=== PATIENT | male | born 1955 ===

== ENCOUNTER 2018-12-26 01:23 | Emergency (ER) | payer OTHER ==
--- OUTSIDE RECORDS SUMMARY | 2018-12-26 01:29 | XMS REPORT | Continuity of Care Document ---
:1955 External Reference #:[id number] Author Name Reji Booker M.D. Address [address] [place] [address] Care Team Providers Name Role Phone Guerline Reza N.P. Primary Care Physician Unavailable Payers Date Identification Numbers Payment Provider Subscriber Policy Number: [id number] Ricci Carlos Bundy Group Number: [id number] [id number] PayID: [id number] [place] [address] Advance Directives Description No Information Available Problems Active Problems Provider Date Subjective tinnitus Onset: Palpitations Onset: Central serous chorioretinopathy Reji Booker M.D. Onset: 12/16/2015 Primary open-angle glaucoma, mild stage Reji Booker M.D. Onset: 2015 Primary open angle glaucoma of right eye Reji Booker M.D. Onset: 2016 Nuclear senile cataract Reji Booker M.D. Onset: 12/17/2016 Bilateral primary open angle glaucoma Reji Booker M.D. Onset: 12/20/2017 Squamous blepharitis Reji Booker M.D. 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 ETOH Use Occasionally consumes alcohol Recreational Drug Use Denies Drug Use Tobacco Use Start: Unknown End: Patient is a former smoker cigars Unknown Smoking Status Reviewed: 12/22/18 Patient is a former smoker cigars Allergies, Adverse Reactions, Alerts Active Allergies Reaction Severity Comments Date Cashews 12/07/2014 Shrimp 12/07/2014 Medications Active Medications SIG Qnty Indications Ordering Provider Date No Active Medications Unknown 12/22/2018 History Medications Erythromycin apply to all 4 lids 1Tube H01.021 Reji SalazarSyeda 12/20/2017 - 5mg/GM at bedtime for 2 Opal Booker 01/05/2018 Ointment weeks, then discontinue No Active Unknown 12/14/2014 - Medications 12/14/2014 No Active Unknown 12/14/2014 - Medications 12/13/2014 Multi Vitamin Daily Unknown - 08/09/2018 Tablets Vitamin C Unknown - 12/16/2016 Echinacea Unknown - 12/16/2016 Calcium Citrate + Unknown - 12/16/2016 Grape Seed Unknown - 12/16/2016 Vitamin B12 Unknown - 12/16/2016 Probiotic Unknown - 08/19/2018 Turmeric Unknown - 12/16/2016 Elle Extract Unknown - 12/16/2016 Cayenne Unknown - 12/16/2016 ALL Spice (In Tea) Unknown - 12/16/2016 Immunizations Description No Information Available Vital Signs Description No Information Available Results Description No Information Available Procedures Date Code Description Status 12/20/2017 66676 Visual Field Exam Extended Completed 12/20/2017 82092 Est Patient Comprehensive Exam Completed 12/17/2016 09334 Scanning Computerized Opthalmic Diagnostic Posterior Seg Completed Retina 12/17/2016 08369 Visual Field Exam Extended Completed 12/17/2016 30826 Est Patient Comprehensive Exam Completed 12/16/2015 11845 Fundus Photography With Interpretation And Report Completed 12/16/2015 97352 Visual Field Exam Extended Completed 12/16/2015 21666 Determination Of Refractive State Completed 12/16/2015 22503 Est Patient Comprehensive Exam Completed 12/14/2014 59496 Determination Of Refractive State Completed 12/14/2014 88292 Est Patient Comprehensive Exam Completed 12/07/2014 01870 Visual Field Exam Extended Completed 12/07/2013 510 Eye Scrubs 30 Count Completed 12/07/2013 26246 Est Patient Comprehensive Exam Completed 12/07/2013 24126 Scanning Computerized Ophthalmic Diagnostic Imag Posterior Completed Seg On 12/07/2013 47281 Scanning Computerized Opthalmic Diagnostic Posterior Seg Completed Retina 06/07/2013 51543 Visual Field Exam Extended Completed 12/06/2012 87662 Fundus Photography With Interpretation And Report Completed 12/06/2012 34139 Determination Of Refractive State Completed 12/06/2012 03180 Est Patient Comprehensive Exam Completed 06/10/2012 31076 Visual Field Exam Extended Completed 12/07/2011 35186 Scanning Computerized Ophthalmic Diagnostic Imag Posterior Completed Seg On 12/07/2011 00474 Determination Of Refractive State Completed 12/07/2011 94893 Est Patient Comprehensive Exam Completed 06/02/2011 23244 Visual Field Exam Extended Completed 06/02/2011 10733 Est Patient Intermediate Exam Completed 12/02/2010 62080 Scanning Computerized Ophthalmic Diagnostic Imag Posterior Completed Seg On 12/02/2010 77377 Determination Of Refractive State Completed 12/02/2010 91788 Est Patient Comprehensive Exam Completed 03/17/2010 33163 Est Patient Comprehensive Exam Completed 03/17/2010 14151 Determination Of Refractive State Completed 03/17/2010 02925 Visual Field Exam Extended Completed 09/02/2009 96722 Scanning Laser W/Interp And Report Completed 09/02/2009 44247 Est Patient Intermediate Exam Completed 02/26/2009 39913 Determination Of Refractive State Completed 02/26/2009 32711 Est Patient Intermediate Exam Completed 02/19/2009 42200 Visual Field Exam Extended Completed 08/21/2008 49128 Scanning Laser W/Interp And Report Completed 08/21/2008 44563 Est Patient Comprehensive Exam Completed 03/26/2008 36982 Visual Field Exam Extended Completed 02/10/2008 37013 Fundus Photography With Interpretation And Report Completed 02/10/2008 03014 Est Patient Intermediate Exam Completed 08/12/2007 75901 Est Patient Comprehensive Exam Completed 04/04/2007 37544 Scanning Laser W/Interp And Report Completed 04/04/2007 09211 Visual Field Exam Extended Completed 02/04/2007 39486 Est Patient Intermediate Exam Completed 09/09/2005 24922 Rescheduled Appointment Completed 08/28/2005 72337 Patient No Show For Appt Completed 07/21/2005 96951 Fluorescein Angiography Completed 07/21/2005 13873 Fluorescein Angiography Completed 07/21/2005 73394 Est Patient Intermediate Exam Completed 05/22/2005 75119 Fluorescein Angiography Completed 05/22/2005 48423 Fluorescein Angiography Completed 05/22/2005 34519 Est Patient Intermediate Exam Completed 04/08/2005 33872 Trabeculoplasty By Laser Surgery Completed 03/26/2005 01669 Est Patient Intermediate Exam Completed 02/26/2005 17178 Scanning Laser W/Interp And Report Completed 02/26/2005 01692 Visual Field Exam Extended Completed 01/21/2005 92286 Patient No Show For Appt Completed 12/29/2004 92236 Fundus Photography With Interpretation And Report Completed 12/29/2004 07102 Determination Of Refractive State Completed 12/29/2004 50518 Est Patient Comprehensive Exam Completed Encounters Type Date Location Provider Dx Diagnosis Office Visit 12/14/2005 Reji Lorenzo, 365.11 Primary Open Angle 2:45p jing AYALA M.D. Glaucoma Office Visit 09/14/2005 Reji Lorenzo, 362.83 Retinal Edema 3:45p jing AYALA M.D. Office Visit 06/22/2005 Reji Lorenzo, 365.11 Primary Open Angle 11:45a jing AYALA M.D. Glaucoma Plan of Treatment 12/22/2018 - eRji Booker M.D.H40.1131 Primary open-angle glaucoma, bilateral, mild stageComments:Smoking can increase the risk of developing or worsening any eye related disease, as well as affect your overall health. If you are a smoker, we strongly recommend that you quit.If you are not a smoker, we strongly recommend that you do not start. Your glaucoma is stable at this time.Your eye pressure is within an acceptable range, and your testing does not show any further deterioration at this time. Please continue your treatment.Follow up:6 Month Follow Up IOP Check Visual Field, 30-2 At your next visit, we are not planning to dilate your eyes. However, if you have any changes in your vision or new symptoms, there are certain situations that require us to dilate your eyes. If Dr. Booker requests any additional testing, that may require extra time. If you have any questions before your next appointment, please call our office at .[phone] Central serous chorioretinopathy, right eye
[2018-12-26] MEDS ORDERED: NS 0.9% 1000 ML** 1,000 ML IV ONE (01:56)
[2018-12-26 02:08] LABS: ABS Eosinophils 0.1 10^3/ul (0-0.6); ABS Lymphocytes 1.6 10^3/ul (1.0-4.8); ABS Monocytes 0.7 10^3/ul (0-0.8); ABS Neutrophils 6.8 10^3/ul (1.5-7.7); Eosinophil % 0.6 %; Hematocrit 47 % (42-52); Hemoglobin 15.8 g/dL (14.0-18.0); Lymphocyte % 17.1 %; Mean Corpuscular HGB Conc 34 g/dL (31-36); Mean Corpuscular Hemoglobin 33 pg (27-31); Mean Corpuscular Volume 96 fL (80-94); Mean Platelet Volume 8.1 fL (7.4-10.4); Platelet Count 154 10^3/uL (150-450); Red Blood Count 4.85 10^6 /uL (4.18-5.48); Red Cell Distribution Width 13 % (10.5-15); White Blood Count 9.2 10^3/uL (3.5-10.8)
--- NOTE | 2018-12-26 02:08 | ED ---
Syncope/Near Syncope - HPI Summary HPI Summary: This patient is a 63 year old M presenting to ED with a chief complaint of syncopal episode yesterday at 0400. The patient rates the pain 1/10 in severity. Symptoms aggravated by nothing. Symptoms alleviated by nothing. Patient denies pain and any other symptoms. Patient was fasting all day 12/24/18. On 12/25/18, patient had syncopal episode at 0400 going to the bathroom and fell and hit his head and now has ecchymosis on left forehead. Patient has been doing okay on 12/25/18 but came in this morning since he felt that his heart had an abnormal rhythm, palpitations-like. He has remote history of possible cardiac arrhythmia as he states a-fib. Patient denies PMHx of HTN, DM, HLD. FHx of DM in mother. Patient has had no surgeries. Patient drinks alcohol rarely and does not use substances or smoke tobacco. - History Of Current Complaint Chief Complaint: EDSyncope Time Seen by Provider: 12/26/18 01:32 Hx Obtained From: Patient Onset/Duration: Resolved Timing: Frequency Of Episodes - 1 Context: Loss Of Consciousness Activity At Onset: Exertion - Walking to bathroom Aggravating Factor(s): Nothing Alleviating Factor(s): Nothing Associated Signs And Symptoms: Head Trauma (Recent), Palpitations - Allergies/Home Medications Allergies/Adverse Reactions: Allergies Allergy/AdvReac Type Severity Reaction Status Date / Time cashew nut Allergy Rash Verified 12/26/18 01:26 shrimp Allergy Nausea And Verified 12/26/18 01:26 Vomiting PMH/Surg Hx/FS Hx/Imm Hx Endocrine/Hematology History: Denies: Hx Diabetes Cardiovascular History: Denies: Hx Hypercholesterolemia, Hx Hypertension - Surgical History Surgery Procedure, Year, and Place: None Infectious Disease History: No Infectious Disease History: Denies: Traveled Outside the [place] in Last 30 Days - Family History Known Family History: Positive: Diabetes - Social History Alcohol Use: Rare Hx Substance Use: No Substance Use Type: Reports: None Hx Tobacco Use: No Smoking Status (MU): Never Smoked Tobacco Review of Systems Positive: Palpitations Positive: Bruising - Left forehead Positive: Syncope - 0400 on 12/25/18 All Other Systems Reviewed And Are Negative: Yes Physical Exam - Summary Physical Exam Summary: VITAL SIGNS: Reviewed. GENERAL: Patient is a well-developed and nourished male who is lying comfortable in the stretcher. Patient is not in any acute respiratory distress. HEAD AND FACE: Ecchymosis over left forehead, hematomas or skull depressions. No sinus tenderness. EYES: PERRLA, EOMI x 2, No injected conjunctiva, no nystagmus. EARS: Hearing grossly intact. Ear canals and tympanic membranes are within normal limits. MOUTH: Oropharynx within normal limits. NECK: Supple, trachea is midline, no adenopathy, no JVD, no carotid bruit, no c- spine tenderness, neck with full ROM CHEST: Symmetric, no tenderness at palpation LUNGS: Clear to auscultation bilaterally. No wheezing or crackles. CVS: Regular rate and rhythm, S1 and S2 present, no murmurs or gallops appreciated. ABDOMEN: Soft, non-tender. No signs of distention. No rebound no guarding, and no masses palpated. Bowel sounds are normal. EXTREMITIES: FROM in all major joints, no edema, no cyanosis or clubbing. NEURO: Alert and oriented x 3. No acute neurological deficits. Speech is normal and follows commands. SKIN: Ecchymosis over left forehead. Triage Information Reviewed: Yes Vital Signs On Initial Exam: Initial Vitals Temp Pulse Resp BP Pulse Ox 98.4 F 67 18 138/81 96 12/26/18 01:23 12/26/18 01:23 12/26/18 01:23 12/26/18 01:23 12/26/18 01:23 Vital Signs Reviewed: Yes Diagnostics - Vital Signs Vital Signs Temp Pulse Resp BP Pulse Ox 12/26/18 01:23 98.4 F 67 18 138/81 96 - Laboratory Result Diagrams: 12/26/18 01:45 12/26/18 01:45 Lab Statement: Any lab studies that have been ordered have been reviewed, and results considered in the medical decision making process. - EKG 0232 Cardiac Rate: NL - 64 BPM EKG Rhythm: Sinus Rhythm Summary of EKG Findings: Sinus rhythm at 64 BPM. Normal axis. Normal interval. No ischemic changes. Re-Evaluation - Re-Evaluation First Eval Re-Evaluation Time: 03:27 Change: Improved Comment: Patient feels better. He was not orthostatic. Hes been on sinus rhythm the entire time in the ED. Patients syncopal episode was most likely due to dehydration as he hasnt drank water for 24 hours. Course/Dx Course Of Treatment: Patient is a 63 y/o M who has remote history of possible cardiac arrhythmia and he states a-fib. Patient was fasting all day 12/24/18. On at 0400, patient experienced syncopal episode while going to the bathroom. He fell at hit his head. Patient was doing well on 12/25/18 but began to feel palpitations and reported an abnormal heart rhythm at night, so he came to the ER. During ED course, patient received fluids. EKG results revealed sinus rhythm at 64 BPM. Normal axis. Normal interval. No ischemic changes. Patient feels better during ED course. He was not orthostatic. Hes been on sinus rhythm the entire time in the ED. Patients syncopal episode was most likely due to dehydration as he hasnt drank water for 24 hours. Patient was instructed to follow-up with cardiology with Dr. Godinez, button machine operator, today for appointment. Patient will be discharged home with dx of dehydration and syncope. Patient understands and agrees with this plan. - Diagnoses Differential Diagnosis/HQI/PQRI: Positive: Other - Dehydration syncope Provider Diagnoses: Syncope, Dehydration Discharge - Sign-Out/Discharge Documenting (check all that apply): Patient Departure - Discharge Patient Received Moderate/Deep Sedation with Procedure: No - Discharge Plan Condition: Stable Disposition: HOME Patient Education Materials: Dehydration (ED), Syncope (ED) Referrals: Power Godinez MD [Medical Doctor] - 1 Day Additional Instructions: Please schedule an appointment with Dr. Godinez, button machine operator today. PLEASE RETURN TO THE ED IMMEDIATELY FOR WORSENING OR CONCERNING SYMPTOMS. - Attestation Statements Document Initiated by Scribe: Yes Documenting Scribe: Alex Howell Provider For Whom Scribe is Documenting (Include Credential): Junie Germain MD Scribe Attestation: I, Alex Howell, scribed for Junie Germain MD on 12/26/18 at 0349. Status of Scribe Document: Ready
[2018-12-26 02:16] LABS: Activated Partial Thrombo Time 29.1 seconds (26.0-36.3); INR 0.97 (0.82-1.09)
[2018-12-26 02:20] LABS: Albumin 4.3 g/dL (3.2-5.2); Albumin/Globulin Ratio 1.4 (1-3); BUN/Creatinine Ratio 22.6 (8-20); Calcium 9.6 mg/dL (8.6-10.3); EGFR African American 78.2 (>60); EGFR Non-African American 64.7 (>60); Magnesium 2.2 mg/dL (1.9-2.7); Potassium 3.6 mmol/L (3.5-5.0); Total Bilirubin 0.4 mg/dL (0.2-1.0); Total Protein 7.3 g/dL (6.4-8.9)
[2018-12-26 02:21] LABS: Troponin I 0.01 ng/mL (<0.04)
[2018-12-26 03:02] LABS: TSH (Thyroid Stimulating Horm) 1.86 mcIU/mL (0.34-5.60)
[2018-12-26 03:41] VITALS: BP 126/87
== END 2018-12-26 03:41 | disposition home or self-care (01) ==
LOC: ED 01:23
DX: R55 Syncope and collapse (principal); E86.0 Dehydration; I48.91 Unspecified atrial fibrillation; S00.83XA Contusion of other part of head, initial encounter; W19.XXXA Unspecified fall, initial encounter; Y92.89 Other specified places as the place of occurrence of the external cause
CPT/HCPCS: 36415; 80053; 83735; 84443; 84484; 85025; 85610; 85730; 93005; 96360; 96361; 99283